=== PATIENT | female | born 1990 | race Hispanic/Latino ===

== ENCOUNTER 2018-09-07 12:00 | Observation (INO) | payer SELFPAY ==
[~2018-09-07] VITALS: Ht 157.5 cm; Wt 84.2 kg
--- OUTSIDE RECORDS SUMMARY | 2018-09-07 12:03 | XMS REPORT | Continuity of Care Document ---
Author Author [facility] Interface Address Unknown Phone Unavailable Problems Problem Status Onset Date Classification Date Reported Comments Source INDUCTION Active 06/14/2018 [facility] Medications Medication Details Route Status Patient Instructions Ordering Provider Order Date Source Allergies, Adverse Reactions, Alerts Substance Category Reaction Severity Reaction type Status Date Reported Comments Source Immunizations Immunization Date Given Site Status Last Updated Comments Source Results Order Name Results Value Reference Range Date Interpretation Comments Source Vital Signs Vital Sign Value Date Comments Source Encounters Location Location Details Encounter Type Encounter Number Reason For Visit Attending Provider ADM Date DC Date Status Source [facility] [place] [facility] [id number] Gissell Romano 03/10/2014 03/11/2014 ROLAND Barbour Procedures Procedure Code Date Perfomer Comments Source
--- OUTSIDE RECORDS SUMMARY | 2018-09-07 12:03 | XMS REPORT | Summary of Care ---
Author Author Lesly Lechuga R.N. Unknown Address [facility] Phone Unavailable Care Team Providers Care Core Blower Operator Name Role Phone DURGA GUNDERSON M.D. Unavailable Unavailable BASILIO ADKINS M.D. Unavailable Unavailable NATALIE Donnelly, JUANKOFRED Unavailable Unavailable BARRON BE,VARINDER Gilman Unavailable Unavailable NELY BE DC, CYN Albarado Unavailable Unavailable Unavailable Unavailable Functional Status Name Dates Details Functional status health issues are not documented Status: Name Dates Details Cognitive status health issues are not documented Status: Problems Name Dates Details Obesity (BMI 30.0-34.9) (278.00, E66.9) Status: Active follow-up (V24.2, Z39.2) Status: Active Encounter for contraceptive management (V25.9, Z30.9) Status: Active Hypertension (401.9, I10) Status: Active Medications Name Dates Details 28-0.8 MG Oral Tablet R.N. * Start : 11-Dec-2017 Active Ferralet 90 90-1 MG Oral Tablet Take one pill daily * Quantity: 30 Refills: 9 NYA ADKINS M.D.SEA * Start : 05-Apr-2018 Active Norethindrone 0.35 MG Oral Tablet TAKE 1 TABLET BY MOUTH EVERY DAY * Quantity: 28 Refills: 10 DURGA GUNDERSON M.D. * Start : 15-Jul-2018 Active NIFEdipine ER Osmotic Release 60 MG Oral Tablet Extended Release 24 Hour TAKE 1 TABLET BY MOUTH EVERY DAY * Quantity: 30 Refills: 0 NATALIE Donnelly, JUANKOREWARNULFO * Start : 21-Jul-2018 Active Allergies and Adverse Reactions Name Dates Details No Known Allergies (Allergy) Status: Active Procedures Procedure Dates Details History of Section Completed Immunization Name Dates Details Tdap (Boostrix) #1 Lot #: [id number] on: 05-Apr-2018 Social History Name Dates Details Unknown if ever smoked Vital Signs Date Test Result Details No Known Vitals to report Results Date Description Value Details Results not documented Plan of Care Name Dates Details Planned Observations Planned Goals not documented Instructions Name Dates Details Instructions not documented Encounters Appointment; TEA LINDSAY M.D. Encounter Diagnosis: Problem not documented On: 11-Dec-2017 8:00 Appointment; [facility], ROOM1 Encounter Diagnosis: Problem not documented On: 25-Dec-2017 13:00 Appointment; MARSHALL KEENAN M.D. Encounter Diagnosis: Problem not documented On: 08-Jan-2018 8:30 Appointment; DURGA GUNDERSON M.D. Encounter Diagnosis: Problem not documented On: 08-Feb-2018 8:30 Appointment; [facility], ROOM3 Encounter Diagnosis: Problem not documented On: 12-Feb-2018 13:00 Appointment; NICOLE ARMSTRONG D.O. Encounter Diagnosis: Problem not documented On: 08-Mar-2018 9:00 Appointment; ZEB GILLETTE M.D. Encounter Diagnosis: Problem not documented On: 05-Apr-2018 15:15 Appointment; OZ SORIA M.D. Encounter Diagnosis: Problem not documented On: 26-Apr-2018 8:30 Appointment; DURGA GUNDERSON M.D. Encounter Diagnosis: Problem not documented On: 10-May-2018 9:45 Appointment; DURGA GUNDERSON M.D. Encounter Diagnosis: Problem not documented On: 24-May-2018 8:45 Appointment; BASILIO ADKINS M.D. Encounter Diagnosis: Problem not documented On: 31-May-2018 13:45 Appointment; BASILIO ADKINS M.D. Encounter Diagnosis: Problem not documented On: 14-Jun-2018 13:30 Appointment; GISELE YU M.D. Encounter Diagnosis: Problem not documented On: 01-Jul-2018 15:30 Appointment; GISELE YU M.D. Encounter Diagnosis: Problem not documented On: 22-Jul-2018 14:30
--- OUTSIDE RECORDS SUMMARY | 2018-09-07 12:03 | XMS REPORT | Summary of Care ---
Author Organization Unknown Address Unknown Phone Unavailable Encounter HQ Encntr_alias(DAE) [id number] Date(s): 03/10/14 - 03/10/14 [facility] Outpatient Imaging - [address] [address] [place] Discharge Disposition: Home Physician Attending: Gissell Romano MD Reason for Visit 256.2 - POSTABLATIV OVA Problem List No data available for this section Allergies, Adverse Reactions, Alerts No data available for this section Medications No data available for this section Medications Administered During Your Visit No data available for this section Immunizations No data available for this section
[2018-09-07] MEDS ORDERED: CEFTRIAXONE SOD 1 GM/NS 50 ML 50 ML IV STA (12:14)
[2018-09-07] MEDS ORDERED: SODIUM CHLORIDE 0.9% 1000ML 1,000 ML IV STA (12:14)
[2018-09-07] MEDS ORDERED: MORPHINE SULFATE INJ 4 MG/ML INJ 1ML IV ONE (12:30)
[2018-09-07] MEDS ORDERED: ONDANSETRON HCL INJ 2MG/ML 2ML 2 MG/ML VIAL IV ONE (12:30)
[2018-09-07 12:44] LABS: BASOPHILS % 0.1 % (0.0-1.0); EOSINOPHILS % 0.2 % (0.0-6.0); HEMATOCRIT 35.6 % (34.2-44.1); HEMOGLOBIN 11.5 g/dL (12.0-16.0); LYMPHOCYTES # (AUTO) 2.5 (1.0-3.2); MEAN CORPUSCULAR HEMOGLOBIN 26.9 pg (28-32); MEAN CORPUSCULAR HGB CONC 32.3 g/dL (31-35); MEAN CORPUSCULAR VOLUME 83.2 fL (81-99); MONOCYTES # (AUTO) 1.3 (0.2-0.8); MONOCYTES % 9.2 % (4.4-11.3); NEUTROPHILS % 72.1 % (38.7-80.0); PLATELET COUNT 326 x10e3/uL (140-360); PREGNANCY TEST, URINE NEGATIVE (NEGATIVE); RED BLOOD COUNT 4.28 x10e6/uL (3.6-5.1); RED CELL DISTRIBUTION WIDTH 13.7 % (11.7-14.4)
[2018-09-07 12:49] LABS: CLARITY,URINE CLEAR (CLEAR); LEUKOCYTE ESTERASE ,URINE NEGATIVE (NEGATIVE); NITRITE,URINE NEGATIVE (NEGATIVE)
[2018-09-07 12:50] LABS: BILIRUBIN,URINE NEGATIVE (NEGATIVE); KETONES,URINE NEGATIVE (NEGATIVE); PROTEIN,URINE DIPSTICK NEGATIVE (NEGATIVE); URINE UROBILINOGEN 0.2 mg/dL (0.2 - 1)
[2018-09-07] MEDS ORDERED: ACETAMINOPHEN 325 MG TAB PO ONE (13:00)
[2018-09-07 13:07] LABS: ALANINE AMINOTRANSFERASE 57 IU/L (0-55); ALBUMIN 4.1 g/dL (3.5-5.0); ALKALINE PHOSPHATASE 62 IU/L (40-150); ANION GAP 14.6 mmol/L (8-16); BLOOD UREA NITROGEN 7 mg/dL (7-26); BUN/CREATININE RATIO 10 (6-25); CALCIUM 9.7 mg/dL (8.4-10.2); CARBON DIOXIDE 26 mmol/L (22-29); CHLORIDE 100 mmol/L (98-107); CREATININE, SERUM 0.72 mg/dL (0.57-1.11); EST GLOMERULAR FILTRATION RATE > 60 ML/MIN (60-); GLUCOSE 96 mg/dL (74-118); LIPASE 14 U/L (8-78); POTASSIUM 3.6 mmol/L (3.5-5.1); SODIUM 137 mmol/L (136-145)
[2018-09-07 13:20] LABS: BACTERIA,URINE FEW /HPF; EPITHELIAL CELLS,URINE MODERATE /LPF; RBC,URINE 0-5 /HPF (0-5)
[2018-09-07 13:35] LABS: COLOR,URINE YELLOW (YELLOW)
[2018-09-07] MEDS ORDERED: SODIUM CHLORIDE 0.9% 1000ML 1,000 ML IV SCH (14:20)
--- NOTE | 2018-09-07 14:25 | Diagnostic Imaging Report ---
EXAMINATION: CT of the abdomen and pelvis with contrast. TECHNIQUE: Spiral CT images of the abdomen and pelvis were performed from the lung bases to the lesser trochanters after the intravenous administration of 100 cc Isovue-370. Coronal and sagittal reformatted images were obtained. COMPARISON: None. CLINICAL HISTORY:Right lower quadrant pain, fever DISCUSSION: ABDOMEN/PELVIS: LOWER THORAX:Unremarkable. HEPATOBILIARY: No focal hepatic lesions. No intra-or extrahepatic biliary ductal dilation. The gallbladder is normal. SPLEEN: No splenomegaly. PANCREAS: No focal masses or ductal dilatation. ADRENALS: No adrenal nodules. KIDNEYS/URETERS: 1.3 cm parenchymal cyst in the left kidney with a calculus in the dependent portion. Subcentimeter hypoattenuating lesion in the right kidney is too small to further characterize but likely to represent an additional small cyst. No hydronephrosis. PELVIC ORGANS/BLADDER: The urinary bladder is unremarkable. Uterus is anteflexed and appears normal. No adnexal mass. PERITONEUM/RETROPERITONEUM: Small amount of free fluid in the pelvis average attenuation 15-20 Hounsfield units. No pneumoperitoneum. LYMPH NODES: No pelvic sidewall, retroperitoneal, or mesenteric lymphadenopathy. VESSELS: Abdominal aorta, major branch vessels, and iliac arterial systems are well-visualized and patent. Portal vein, splenic vein, and central superior mesenteric vein are patent. GI TRACT: The large bowel shows no evidence of distention or wall thickening. Gas and fecal material are noted throughout. The appendix is dilated to a maximum diameter of 14 mm, with wall thickening and enhancement predominantly distally. There is surrounding right lower quadrant inflammation and pericolic free fluid extending into the pelvis. No loculated fluid collection. BONES AND SOFT TISSUE: No osseous destructive lesions. No focal soft tissue abnormalities. Postsurgical changes along the low anterior abdominal wall. IMPRESSION: Acute appendicitis with reactive paracolic and free pelvic fluid. No tomas perforation or drainable fluid collection. Findings were discussed with DREW Villegas of the emergency center at 2:10 PM on 09/07/2018. Signed by: Dr. Lance Ramirez M.D. on 09/07/2018 2:21 PM
[2018-09-07] MEDS ORDERED: CEFTRIAXONE SOD 1 GM VIAL IV ONE (14:30)
[2018-09-07] MEDS ORDERED: MORPHINE SULFATE INJ 4 MG/ML INJ 1ML IV PRN (14:30)
[2018-09-07] MEDS ORDERED: ONDANSETRON HCL INJ 2MG/ML 2ML 2 MG/ML VIAL IV PRN (14:30)
[2018-09-07] MEDS ORDERED: SODIUM CHLORIDE 0.9% 50ML 50 ML ONE (14:37)
[2018-09-07] MEDS ORDERED: IOPAMIDOL 370 MG/ML 200 ML INFUS..BTL INJ ONE (14:37)
--- OUTSIDE RECORDS SUMMARY | 2018-09-07 14:56 | XMS REPORT ---
Author Author [facility] Address Unknown Phone Unavailable Care Team Providers Care Metal Patternmaker Name Role Phone Gaurav MELENDEZ Unavailable Unavailable Problems This patient has no known problems. Allergies, Adverse Reactions, Alerts This patient has no known allergies or adverse reactions. Medications This patient has no known medications. Results Test Description Test Time Test Comments Text Results Atomic Results Result Comments CT ABDOMEN/PELVIS W 2018-09-07 14:13:00 [place] [address] Patient Name: RANDY WILSON MR #: [id number] : 1990 Age/Sex: 28/F Req #: [id number] Adm Physician: Ordered by: RESHMA LICONA FIGHTER PILOT Report #: [id number] Location: ER Room/Bed: Procedure: [id number] CT/CT ABDOMEN/PELVIS W Exam Date: 09/07/18 Exam Time: 1320 REPORT STATUS: Signed EXAMINATION: CT of the abdomen and pelvis with contrast. TECHNIQUE: Spiral CT images of the abdomen and pelvis were performed from the lung bases to the lesser trochanters after the intravenous administration of 100 cc Isovue-370. Coronal and sagittal reformatted images were obtained. COMPARISON: None. CLINICAL HISTORY:Right lower quadrant pain, fever DISCUSSION: ABDOMEN/PELVIS: LOWER THORAX:Unremarkable. HEPATOBILIARY: No focal hepatic lesions. No intra-or extrahepatic biliary ductal dilation. The gallbladder is normal. SPLEEN: No splenomegaly. PANCREAS: No focal masses or ductal dilatation. ADRENALS: No adrenal nodules. KIDNEYS/URETERS: 1.3 cm parenchymal cyst in the left kidney with a calculus in the dependent portion. Subcentimeter hypoattenuating lesion in the right kidney is too small to further characterize but likely to represent an additional small cyst. No hydronephrosis. PELVIC ORGANS/BLADDER: The urinary bladder is unremarkable. Uterus is anteflexed and appears normal. No adnexal mass. PERITONEUM/RETROPERITONEUM: Small amount of free fluid in the pelvis average attenuation 15-20 Hounsfield units. No pneumoperitoneum. LYMPH NODES: No pelvic sidewall, retroperitoneal, or mesenteric lymphadenopathy. VESSELS: Abdominal aorta, major branch vessels, and iliac arterial systems are well- visualized and patent. Portal vein, splenic vein, and central superior mesenteric vein are patent. GI TRACT: The large bowel shows no evidence of distention or wall thickening. Gas and fecal material are noted throughout. The appendix is dilated to a maximum diameter of 14 mm, with wall thickening and enhancement predominantly distally. There is surrounding right lower quadrant inflammation and pericolic free fluid extending into the pelvis. No loculated fluid collection. BONES AND SOFT TISSUE: No osseous destructive lesions. No focal soft tissue abnormalities. Postsurgical changes along the low anterior abdominal wall. IMPRESSION: Acute appendicitis with reactive paracolic and free pelvic fluid. No tomas perforation or drainable fluid collection. Findings were discussed with DREW Licona of the emergency center at 2:10 PM on 09/07/2018. Signed by: Dr. Chris Lieberman M.D. on 09/07/2018 2:21 PM Dictated By: CHRIS LIEBERMAN MD [id number] Transcribed By: JEFF on 09/07/18 1421 COPY TO: RESHMA LICONA NP
[2018-09-07] MEDS ORDERED: METRONIDAZOLE 500MG/NS 100ML 100 ML IV ONE (15:00)
[2018-09-07] MEDS ORDERED: CEFTRIAXONE SOD 1 GM/NS 50 ML 50 ML IV SCH (15:00)
--- NOTE | 2018-09-07 15:38 | History and Physical ---
CHIEF COMPLAINT: Right lower quadrant pain, appendicitis. HISTORY OF PRESENT ILLNESS: The patient is an otherwise healthy 28-year-old female admitted complaining of abdominal pain the day prior to admission. The pain began in the midupper abdomen and localized to the right lower quadrant this morning. This was associated with nausea and vomiting. No similar episodes in the past. The patient went to a local clinic and was told she had appendicitis, and referred to the emergency room. In the emergency room, she had a CT scan that revealed acute appendicitis. White count is 13,000. PAST MEDICAL HISTORY: Unremarkable. PAST SURGICAL HISTORY: Had a in May 2018. FAMILY HISTORY: Noncontributory. SOCIAL HISTORY: She does not drink. Does not smoke. REVIEW OF SYSTEMS: Significant for what has been stated. PHYSICAL EXAMINATION GENERAL: Reveals a 28-year-old female in mild distress. When she moves, she complains of pain. HEENT: Unremarkable. LUNGS: Clear. HEART: Reveals regular sinus rhythm. ABDOMEN: Nondistended. There is exquisite tenderness over McBurney's point with rebound. EXTREMITIES: Reveal no clubbing, cyanosis or edema. NEUROLOGICAL: Nonfocal. ASSESSMENT: Acute appendicitis, possible with pregangrenous changes. PLAN: Proceed with laparoscopic appendectomy and possible open appendectomy. Plans have been discussed with the patient and she agrees. Job#: [id number] PETER
[2018-09-07] MEDS ORDERED: BUPIVACAINE 0.5%/EPI 30 ML SDV INJ ONE (17:11)
[2018-09-07] MEDS ORDERED: ROCURONIUM BROMIDE 10 MG/ML 5ML VIAL ONE (17:18)
[2018-09-07] MEDS ORDERED: ONDANSETRON HCL INJ 2MG/ML 2ML 2 MG/ML VIAL ONE (17:18)
[2018-09-07] MEDS ORDERED: DEXAMETHASONE SOD PHOS INJ 4 MG/ML VIAL ONE (17:18)
[2018-09-07] MEDS ORDERED: SEVOFLURANE INHAL SOLN 250 ML PEN BTL ONE (17:18)
[2018-09-07] MEDS ORDERED: GLYCOPYRROLATE INJ 1MG/ 5 ML SYR ONE (17:18)
[2018-09-07] MEDS ORDERED: LIDOCAINE HCL 2% LOCAL INJ 5 ML SDV VIAL INJ ONE (17:18)
[2018-09-07] MEDS ORDERED: PROPOFOL IV EMULSION 10 MG/ML 20 ML VIAL ONE (17:18)
[2018-09-07] MEDS ORDERED: ACETAMINOPHEN 1000 MG/100 ML IV ONE (17:18)
[2018-09-07] MEDS ORDERED: NEOSTIGMINE 5 MG/5ML SYR ONE (17:18)
[2018-09-07] MEDS ORDERED: PROMETHAZINE HCL (IM) 25 MG/ML VIAL IV PRN (17:45)
[2018-09-07] MEDS ORDERED: HYDROCODONE/APAP 7.5MG-325MG 1 EA TAB PO PRN (17:45)
[2018-09-07] MEDS ORDERED: METRONIDAZOLE 500MG/NS 100ML 100 ML IV SCH (18:00)
[2018-09-07] MEDS ORDERED: CEFTRIAXONE SOD 2 GM/NS 100 ML 100 ML IV SCH (18:00)
[2018-09-07] MEDS ORDERED: MIDAZOLAM HCL 2 MG/2 ML VIAL ONE (18:01)
[2018-09-07] MEDS ORDERED: FENTANYL CITRATE/PF 100MCG/2 ML INJ ONE ×2 (18:01→18:26)
[2018-09-07] MEDS ORDERED: KETAMINE HCL INJ 50 MG/ML 10 ML VIAL ONE (18:01)
[2018-09-07] MEDS ORDERED: MEPERIDINE HCL INJ 25 MG/ML VIAL ONE (19:29)
[2018-09-07 19:45] VITALS: BP 116/62
[2018-09-07 20:05] VITALS: BP 116/62
--- NOTE | 2018-09-07 20:05 | NUR ---
PATIENT RECEIVED FROM PACU PER DARIA AT 1943. SHE'S ALERT AND ORIENTED X3, NO RESPIRATORY DISTRESS OBSERVE AND SHE DENIES ABDOMINAL PAIN BUT C/O SORENESS TO THE ABDOMEN. DRESSINGS DRY AND INTACT TO THE ABDOMEN WITHOUT BLEEDING. PATIENT ORIENTED TO SURROUNDINGS, CALL LIGHT WITHIN EASY REACH, SHE'S INSTRUCTED TO CALL FOR ASSISTANCE UPON GETTING OUT OF THE BED.
[2018-09-07] MEDS: METRONIDAZOLE 500MG/NS 100ML 100 ML IV SCH (22:08)
--- NOTE | 2018-09-07 22:15 | NUR ---
PATIENT ASSISTED TO THE RESTROOM TO VOID, SHE'S NOW BACK IN BED WITHOUT RESPIRATORY DISTRESS. DRESSINGS REMAINS DRY AND INTACT TO THE ABDOMEN, PATIENT DENIES PAIN. CALL LIGHT WITHIN EASY REACH, INSTRUCTED TO CALL FOR ASSISTANCE NEEDED.
--- NOTE | 2018-09-07 23:05 | Operative Report ---
DATE OF PROCEDURE: September 07, 2018 PREOPERATIVE DIAGNOSIS: Acute appendicitis. POSTOPERATIVE DIAGNOSIS: Acute appendicitis. PROCEDURE PERFORMED: Laparoscopic appendectomy. ANESTHESIA: General endotracheal. ESTIMATED BLOOD LOSS: Minimal. DRAINS: None. COMPLICATIONS: None. INDICATIONS AND FINDINGS: The patient is a 28-year-old female who was admitted to hospital complaining of abdominal pain since the day prior to admission. CT scan revealed acute appendicitis. White count was 13,000. Physical examination revealed exquisite tenderness in the right lower quadrant with rebound changes. INTRAOPERATIVE FINDINGS: Acute appendicitis with an inflamed appendix in its entirety except at the junction with the cecum. DESCRIPTION OF THE PROCEDURE: With the patient lying on the operative table in the supine position, after administration of general anesthesia, she was prepped and draped for laparoscopic appendectomy. The procedure was begun by establishing the pneumoperitoneum in the right upper quadrant midclavicular line and a 5-mm trocar was placed after the saline drop test was performed. Then under direct vision with the camera, we placed an 11/12 trocar in the umbilicus and finally we placed a right lower quadrant trocar in the suprapubic region. Then we introduced the camera, identified the inflammatory process in the right lower quadrant. Initially, the base of the appendix nor the appendix was visualized. We had to dissect along the white line of Toldt to mobilize the cecum and then we saw the appendix which was stuck to the undersurface of the ovaries and part of the tube, those were dissected free and then we continued the dissection by mobilizing the appendix proximally until we identified the junction with the cecum. The blood supply to the appendix was rather narrow, was dealt with with a combination of electrocautery and 5-mm stapler and then we transected the appendix close to the cecum using the Endo HOSSEIN with blue load away from the ileocecal valve. We placed the appendix in an Endobag and removed it after transposition of the camera to the right upper quadrant trocar and then we reintroduced the pneumoperitoneum, inspected the operative field. We irrigated the cecal junction and the pelvis and then removed all the effluent fluid until it was clear. After ascertaining there was no bleeding, no bile spillage, we released the pneumoperitoneum and then closed the wounds using #0 Vicryl for the umbilical fascia, 3-0 Vicryl for the subcutaneous tissue in that location as well as the subxiphoid port and the skin of all the ports was closed using alejandro. 0.25% Marcaine with epinephrine was given as local block. The patient tolerated the procedure well, taken to recovery room in stable condition. Job#: [id number]
[2018-09-08] VITALS: BP 106/56
--- NOTE | 2018-09-08 03:06 | NUR ---
CONDITION STABLE WITHOUT DISTRESS, SHE DENIES ABDOMINAL PAIN. PATIENT HAS HER BREAST PUMP ON THE COUNTER, SHE WAS TOLD THAT IT'S NOT SAFE TO BREAST FEED AT THIS TIME DUE TO THE ANTIBIOTIC THAT SHE'S TAKING. SHE STATED "I ONLY PUMP AND WASTE IT FOR NOW".
[2018-09-08 04:00] VITALS: BP 107/60
[2018-09-08] MEDS: METRONIDAZOLE 500MG/NS 100ML 100 ML IV SCH (05:01)
[2018-09-08] MEDS ORDERED: MORPHINE SULFATE INJ 4 MG/ML INJ 1ML IV PRN (05:05)
[2018-09-08] MEDS ORDERED: PROMETHAZINE HCL (IM) 25 MG/ML VIAL IV PRN (05:06)
[2018-09-08] MEDS ORDERED: SODIUM CHLORIDE 0.9% 1000ML 1,000 ML IV SCH ×3 (05:09→05:15)
--- NOTE | 2018-09-08 07:00 | NUR ---
rounded with shift boss nurse, patient aware of change. Patient in no distress at this time. Patient in bathroom sponging off.
--- NOTE | 2018-09-08 07:20 | NUR ---
WALKING ROUNDS CHANGE OF SHIFT REPORT GIVEN TO THE ONCOMING NURSE, THE PATIENT CONDITION IS STABLE, SHE'S TAKING A SPONGE BATH AT THIS TIME. SHE WAS INSTRUCTED TO NOTIFY THE PRIMARY NURSE REGARDING PAIN MANAGEMENT.
[2018-09-08 08:00] VITALS: BP 131/69
[2018-09-08] MEDS ORDERED: PROMETHAZINE 12.5MG/ NACL 0.9% 50 ML IV PRN (08:00)
[2018-09-08 08:10] VITALS: BP 124/67
[2018-09-08] MEDS ORDERED: METRONIDAZOLE 500MG/NS 100ML 100 ML IV SCH (11:00)
[2018-09-08 12:00] VITALS: BP 118/78
--- NOTE | 2018-09-08 12:45 | NUR ---
SOCIAL WORK INITIAL ASSESSMENT Procurement Specialist to bedside to discuss plan of care with patient/family. CM/SW role and care transitions discussed. Anticipated discharge plan discussed along with duration of care. CM/SW discussed patients right to make decisions in care. CM/SW work hours given. 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 RESOURCES THAT PATIENT MAY BE ABLE TO FOLLOW UP UPON DISCHARGE. PT EDUCATED ON EACH RESOURCE AND UNDERSTANDING HOW TO FOLLOW UP TO SEE IF QUALIFIED FOR EACH RESOURCE. Referral Needs: NA Education Needs: NA IMM/SIMMS given and signed (if applicable): NA Goal for discharge: RETURN HOME CM/SW left business card at the bedside with contact information. Name and number was also written on the patients whiteboard. Patient verbalized understanding of discussion. CM will follow-up with ongoing discharge and transition of care needs.
--- NOTE | 2018-09-08 12:46 | NUR ---
POST DISCHARGE STATUS FORM FILED IN FRONT OF CHART NO NEEDS
[2018-09-08] MEDS ORDERED: TYLENOL WITH C1 EACH PO (13:39)
[2018-09-08] MEDS ORDERED: AUGMENTIN 500-1 EACH PO (13:57)
[2018-09-08] MEDS ORDERED: CEFTRIAXONE SOD 1 GM/NS 50 ML 50 ML IV ONE (14:00)
--- NOTE | 2018-09-08 14:36 | NUR ---
discharge instructions given to patient and , both verbalized understanding. IV discontinued at this time, catheter in tact and small dressing applied. Patient to be escorted out via wheelchair to personal auto for to drive home.
== END 2018-09-08 14:44 | disposition home or self-care (01) ==
LOC: ER 12:00 → ERHOLD 14:54 → UNDOADMOB 14:54 → OR 15:56 → IMCU 18:16
PROVIDERS: ADMIT Surgery; ATTEND Surgery
DX: K35.891 Other acute appendicitis without perforation, with gangrene (principal)
CPT/HCPCS: 36415; 44970; 74177; 80053; 81001; 81025; 83690; 85025; 87086; 88304; 96361; 96367; 99284; C1766; G0378 ×2; J0131; J0696 ×3; J1100; J2001; J2175; J2250; J2270; J2405; J2704; J3490; J7030 ×2; Q9967